=== PATIENT | female | born 1985 | race American Indian/Alaskan Native ===

== ENCOUNTER 2017-04-17 02:00 | Emergency (ER) | payer OTHER ==
[2017-04-17 02:12] VITALS: BP 115/55
[2017-04-17 02:48] LABS: Basophils % (Auto) 0.4 % (0.0-1.8); Eosinophils % (Auto) 5.1 % (0.0-4.3); Hemoglobin 13.5 gm/dl (10.1-14.3); Mean Corpuscular HGB Conc 34 % (30-34); Mean Corpuscular Hemoglobin 29 pg (28-32); Mean Corpuscular Volume 87 fl (79-97); Platelet Count 254 K/mm3 (140-440); Red Cell Distribution Width 13.4 % (13.2-15.2)
[2017-04-17 03:02] LABS: Alanine Aminotransferase 13 units/L (7-56); Albumin 4.3 g/dL (3.9-5); Albumin/Globulin Ratio 1.2 %; Alkaline Phosphatase 46 units/L (35-129); Anion Gap 16 mmol/L; BUN/Creatinine Ratio 15; Bilirubin,Total < 0.20 mg/dL (0.1-1.2); Blood Urea Nitrogen 9 mg/dL (7-17); Calcium 9.2 mg/dL (8.4-10.2); Carbon Dioxide 24 mmol/L (22-30); Chloride 100.5 mmol/L (98-107); Glucose 97 mg/dL (65-100); Lipase 41 units/L (13-60); Potassium 3.8 mmol/L (3.6-5.0); Sodium 137 mmol/L (137-145); Total Protein 7.8 g/dL (6.3-8.2)
[2017-04-17 04:22] LABS: Bilirubin,Urine NEG (Negative); Blood,Urine SM (Negative); Ketones,Urine NEG (Negative); Leukocyte Esterase,Urine NEG (Negative); Mucus,Urine FEW /HPF; Nitrite,Urine NEG (Negative); Urobilinogen,Urine < 2.0 mg/dL (<2.0)
== END 2017-04-17 02:49 | disposition left against medical advice (07) ==
LOC: ED 02:00
DX: R10.9 Unspecified abdominal pain (principal); Z53.21 Procedure and treatment not carried out due to patient leaving prior to being seen by health care provider
CPT/HCPCS: 36415; 80053; 81001; 83690; 85025

== ENCOUNTER 2017-06-26 11:56 | Emergency (ER) | payer SELFPAY ==
[2017-06-26 12:11] VITALS: BP 111/79
[2017-06-26] MEDS ORDERED: NACL 0.9% 1000 ML 1,000 ML IV ONE (12:35)
[2017-06-26] MEDS ORDERED: ZOFRAN IV ONE (12:35)
--- NOTE | 2017-06-26 12:36 | Emergency Department Report ---
Blank Doc - Documentation Documentation: vomiting, 9weeks ga, no pain, no bleeding. symptoms x 1 week.
[2017-06-26 13:10] LABS: Basophils % (Auto) 0.4 % (0.0-1.8); Eosinophils # (Auto) 0.1 K/mm3 (0.0-0.4); Eosinophils % (Auto) 1.9 % (0.0-4.3); Hematocrit 37.4 % (30.3-42.9); Hemoglobin 12.5 gm/dl (10.1-14.3); Lymphocytes # (Auto) 2.3 K/mm3 (1.2-5.4); Lymphocytes % (Auto) 33.1 % (13.4-35.0); Mean Corpuscular HGB Conc 33 % (30-34); Mean Corpuscular Hemoglobin 28 pg (28-32); Mean Corpuscular Volume 85 fl (79-97); Monocytes # (Auto) 0.4 K/mm3 (0.0-0.8); Platelet Count 305 K/mm3 (140-440); Red Blood Count 4.41 M/mm3 (3.65-5.03); Red Cell Distribution Width 12.7 % (13.2-15.2)
[2017-06-26 13:38] LABS: Alanine Aminotransferase 34 units/L (7-56); Albumin 3.6 g/dL (3.9-5); BUN/Creatinine Ratio 15; Blood Urea Nitrogen 6 mg/dL (7-17); Hemolysis Index 40; Lipase 30 units/L (13-60)
[2017-06-26 14:27] LABS: Bacteria,Urine 2+ /HPF (Negative); Bilirubin,Urine NEG (Negative); Blood,Urine MOD (Negative); Color,Urine Yellow (Yellow); Mucus,Urine 3+ /HPF
--- NOTE | 2017-06-26 14:54 | Emergency Department Report ---
HPI - General Chief Complaint: Nausea/Vomiting/Diarrhea Time Seen by Provider: 06/26/17 14:49 - HPI HPI: 32-year-old -Serbian female, presents to ED with nausea, vomiting, 9 weeks GA. She has not seen an DURABILITY TECHNICIAN doctor yet for this . Symptoms as been going on for the past week, worse today. She is not taking any antiemetic this . Last she took Zofran, Phenergan, with relief of her symptoms. ED Past Medical Hx - Past Medical History Previous Medical History?: No Hx Hypertension: No Hx CVA: No - Surgical History Additional Surgical History: Knee Sx - Social History Smoking Status: Never Smoker Substance Use Type: None - Medications Home Medications: Home Medications Medication Instructions Recorded Confirmed Last Taken Type Ondansetron [Zofran Odt] 4 mg PO BIDAC PRN #30 tab.rapdis 06/26/17 Unknown Rx ED Review of Systems ROS: Stated complaint: N/V Other details as noted in HPI Comment: All other systems reviewed and negative Gastrointestinal: nausea, vomiting Physical Exam - Physical Exam Vital Signs: Vital Signs 06/26/17 12:08 Temperature 98.6 F Pulse Rate 67 Respiratory 18 Rate Blood Pressure 111/79 O2 Sat by Pulse 100 Oximetry Physical Exam: - Physical Exam Physical Exam: - General Limitations: No Limitations General appearance: alert, in no apparent distress, obese - Head Head exam: Present: atraumatic, normocephalic - Eye Eye exam: Present: normal appearance - ENT ENT exam: Present: mucous membranes moist - Neck Neck exam: Present: normal inspection - Respiratory Respiratory exam: Present: normal lung sounds bilaterally. Absent: respiratory distress - Cardiovascular Cardiovascular Exam: Present: normal rhythm, tachycardia. Absent: systolic murmur, diastolic murmur, rubs, gallop - GI/Abdominal GI/Abdominal exam: Present: soft, normal bowel sounds - Extremities Exam Extremities exam: Present: normal inspection - Back Exam Back exam: Present: normal inspection - Neurological Exam Neurological exam: Present: alert, oriented X3 - Psychiatric Psychiatric exam: normal affect and mood - Skin Skin exam: Present: warm, dry, intact, normal color. Absent: rash ED Course Vital Signs 06/26/17 12:08 Temperature 98.6 F Pulse Rate 67 Respiratory 18 Rate Blood Pressure 111/79 O2 Sat by Pulse 100 Oximetry ED Medical Decision Making - Lab Data Result diagrams: 06/26/17 13:04 06/26/17 12:57 Critical care attestation.: If time is entered above; I have spent that time in minutes in the direct care of this critically ill patient, excluding procedure time. ED Disposition Clinical Impression: Vomiting of Disposition: DC-01 TO HOME OR SELFCARE Is pt being admited?: No Does the pt Need Aspirin: No Condition: Stable Instructions: Hyperemesis Gravidarum (ED) Prescriptions: Ondansetron [Zofran Odt] 4 mg PO BIDAC PRN #30 tab.rapdis PRN Reason: Vomiting Referrals: PRIMARY CARE, [Primary Care Provider] - 3-5 Days
== END 2017-06-26 15:07 | disposition home or self-care (01) ==
LOC: ED 11:56
DX: O21.9 Vomiting of pregnancy, unspecified (principal); Z3A.09 9 weeks gestation of pregnancy
CPT/HCPCS: 36415; 80053; 81001; 83690; 85025; 96361; 96374; 99283; J2405; J7030

== ENCOUNTER 2017-08-03 19:03 | Emergency (ER) | payer MEDICAID ==
[2017-08-03] MEDS ORDERED: ZOFRAN ODT ONE (19:19)
[2017-08-03] MEDS ORDERED: ZOFRAN ODT PO ONE (19:27)
[2017-08-03 19:54] LABS: Basophils % (Auto) 0.3 % (0.0-1.8); Eosinophils # (Auto) 0.2 K/mm3 (0.0-0.4); Eosinophils % (Auto) 2.8 % (0.0-4.3); Hematocrit 38.5 % (30.3-42.9); Hemoglobin 12.8 gm/dl (10.1-14.3); Lymphocytes # (Auto) 2.3 K/mm3 (1.2-5.4); Lymphocytes % (Auto) 26.3 % (13.4-35.0); Mean Corpuscular HGB Conc 33 % (30-34); Mean Corpuscular Hemoglobin 28 pg (28-32); Mean Corpuscular Volume 85 fl (79-97); Monocytes # (Auto) 0.6 K/mm3 (0.0-0.8); Platelet Count 308 K/mm3 (140-440); Red Blood Count 4.55 M/mm3 (3.65-5.03); Red Cell Distribution Width 13.2 % (13.2-15.2)
[2017-08-03 20:13] LABS: Bacteria,Urine 1+ /HPF (Negative); Bilirubin,Urine NEG (Negative); Blood,Urine MOD (Negative); Color,Urine Yellow (Yellow); Mucus,Urine 2+ /HPF
[2017-08-03 20:19] LABS: Alanine Aminotransferase 37 units/L (7-56); Albumin 3.9 g/dL (3.9-5); BUN/Creatinine Ratio 15; Blood Urea Nitrogen 6 mg/dL (7-17); Calcium 9.9 mg/dL (8.4-10.2); Hemolysis Index 12
[2017-08-03] MEDS ORDERED: K-DUR PO ONE (21:27)
[2017-08-03] MEDS ORDERED: D5NS 1,000 ML IV SCH ×2 (22:00)
--- NOTE | 2017-08-03 22:07 | Emergency Department Report ---
ED HPI - General Chief complaint: Abdominal Pain Stated complaint: NAUSEA/LOWER ABDOMINAL PAIN Time Seen by Provider: 08/03/17 21:27 Source: patient Mode of arrival: Ambulatory Limitations: No Limitations - History of Present Illness Initial comments: 32-year-old female is currently approximately 14 weeks presents to the hospital complaints of lower abdominal pain and persistent nausea and vomiting for 3 days. Patient was seen here on the for hyperemesis and received Zofran prescription with improvement which she currently does not have any antiemetic medication. She then presented to [facility] on the for the same symptoms. States her blood type is O- and she received RhoGAM during her [facility] visit but denies that she was having any vaginal bleeding or pain at that time. Patient now presents with intermittent suprapubic abdominal pain rated 6 out of 10 intensity. Pain is wore with palpation. No alleviating factors. Denies vaginal bleeding. dysuria, fever, diarrhea, hematemesis, or hematochezia. Patient complains of irritation to her left ear after sticking a Q-tip in its states it only hurts when she palpates the tragus and pain is gradually improving. No drainage or decreased hearing reported. Patient has her first visit scheduled with the group affiliated with [facility]. She plans to find a BIBLE TEACHER doctor affiliated with this hospital due to her family's bad past experiences with [facility]. She has had ultrasound at 7 weeks gestation at a clinic. - Related Data Previous Rx's Medication Instructions Recorded Last Taken Type Ondansetron [Zofran Odt] 4 mg PO BIDAC PRN #30 tab.rapdis 06/26/17 Unknown Rx Ondansetron [Zofran Odt] 4 mg PO Q8HR PRN #30 tab.rapdis 08/04/17 Unknown Rx Allergies Allergy/AdvReac Type Severity Reaction Status Date / Time No Known Allergies Allergy Verified 08/03/17 20:39 ED Review of Systems ROS: Stated complaint: NAUSEA/LOWER ABDOMINAL PAIN Other details as noted in HPI Comment: All other systems reviewed and negative ED Past Medical Hx - Past Medical History Previous Medical History?: No Hx Hypertension: No Hx CVA: No - Surgical History Past Surgical History?: Yes Additional Surgical History: R Knee Sx 2000 - Social History Smoking Status: Never Smoker Substance Use Type: None - Medications Home Medications: Home Medications Medication Instructions Recorded Confirmed Last Taken Type Ondansetron [Zofran Odt] 4 mg PO BIDAC PRN #30 tab.jeaninedis 06/26/17 08/03/17 Unknown Rx Ondansetron [Zofran Odt] 4 mg PO Q8HR PRN #30 tab.jeaninedis 08/04/17 Unknown Rx ED Physical Exam - General Limitations: No Limitations - Other Other exam information: General: No limitations, patient is alert in no acute distress Head exam: Atraumatic, normocephalic Eyes exam: Normal appearance ENT: Dry mucous membrane Neck exam: Normal inspection, full range of motion, no meningismus nontender Respiratory exam: Clear to auscultation bilateral, no wheezes, rales, crackles Cardiovascular: Normal rate and rhythm, normal heart sounds Abdomen: Soft, nondistended, mild Jennings the pubic tenderness, with normal bowel sounds, no rebound, or guarding Extremity: Full range of motion normal inspection no deformity Back: Normal Inspection, full range of motion, no tenderness Neurologic: Alert, oriented x3, cranial nerves intact, no motor or sensory deficit Psychiatric: normal affect, normal mood Skin: Warm, dry, intact ED Course Vital Signs 08/03/17 08/03/17 08/03/17 19:10 20:32 20:38 Temperature 99 F Pulse Rate 98 H 74 Respiratory 20 16 Rate Blood Pressure 112/77 Blood Pressure 104/64 [Right] O2 Sat by Pulse 99 100 96 Oximetry 08/03/17 08/03/17 08/03/17 20:45 21:00 21:15 Temperature Pulse Rate Respiratory Rate Blood Pressure 112/70 112/70 107/68 Blood Pressure [Right] O2 Sat by Pulse 100 100 100 Oximetry 08/03/17 08/03/17 08/03/17 21:17 21:30 21:45 Temperature Pulse Rate 74 Respiratory 16 Rate Blood Pressure 107/68 109/72 Blood Pressure 107/62 [Right] O2 Sat by Pulse 100 99 98 Oximetry 08/03/17 08/03/17 22:00 23:04 Temperature Pulse Rate Respiratory Rate Blood Pressure 109/72 109/72 Blood Pressure [Right] O2 Sat by Pulse 100 99 Oximetry - Reevaluation(s) Reevaluation #1: 08/04/17 00:45 pt feeling better, nausea has improved. Tolerated PO KCL ED Medical Decision Making - Lab Data Result diagrams: 08/03/17 19:22 08/03/17 19:22 Lab Results 08/03/17 08/03/17 08/03/17 Range/Units 19:22 19:22 19:22 WBC 8.9 (4.5-11.0) K/mm3 RBC 4.55 (3.65-5.03) M/mm3 Hgb 12.8 (10.1-14.3) gm/dl Hct 38.5 (30.3-42.9) % MCV 85 (79-97) fl MCH 28 (28-32) pg MCHC 33 (30-34) % RDW 13.2 (13.2-15.2) % Plt Count 308 (140-440) K/mm3 Lymph % (Auto) 26.3 (13.4-35.0) % Wilkin % (Auto) 7.0 (0.0-7.3) % Eos % (Auto) 2.8 (0.0-4.3) % Baso % (Auto) 0.3 (0.0-1.8) % Lymph # 2.3 (1.2-5.4) K/mm3 Wilkin # 0.6 (0.0-0.8) K/mm3 Eos # 0.2 (0.0-0.4) K/mm3 Baso # 0.0 (0.0-0.1) K/mm3 Seg Neutrophils % 63.6 (40.0-70.0) % Seg Neutrophils # 5.7 (1.8-7.7) K/mm3 Sodium 136 L (137-145) mmol/L Potassium 3.4 L (3.6-5.0) mmol/L Chloride 97.5 L (98-107) mmol/L Carbon Dioxide 21 L (22-30) mmol/L Anion Gap 21 mmol/L BUN 6 L (7-17) mg/dL Creatinine 0.4 L (0.7-1.2) mg/dL Estimated GFR > 60 ml/min BUN/Creatinine Ratio 15 % Glucose 83 (65-100) mg/dL Calcium 9.9 (8.4-10.2) mg/dL Total Bilirubin 0.20 (0.1-1.2) mg/dL AST 34 (5-40) units/L ALT 37 (7-56) units/L Alkaline Phosphatase 36 (35-129) units/L Total Protein 7.8 (6.3-8.2) g/dL Albumin 3.9 (3.9-5) g/dL Albumin/Globulin Ratio 1.0 % HCG, Quant 541412 H (0-4) mIU/mL Urine Color (Yellow) Urine Turbidity (Clear) Urine pH (5.0-7.0) Ur Specific [place] (1.003-1.030) Urine Protein (Negative) mg/dL Urine Glucose (UA) (Negative) mg/dL Urine Ketones (Negative) mg/dL Urine Blood (Negative) Urine Nitrite (Negative) Urine Bilirubin (Negative) Urine Urobilinogen (<2.0) mg/dL Ur Leukocyte Esterase (Negative) Urine WBC (Auto) (0.0-6.0) /HPF Urine RBC (Auto) (0.0-6.0) /HPF U Epithel Cells (Auto) (0-13.0) /HPF Urine Bacteria (Auto) (Negative) /HPF Urine Mucus /HPF 08/03/17 Range/Units Unknown WBC (4.5-11.0) K/mm3 RBC (3.65-5.03) M/mm3 Hgb (10.1-14.3) gm/dl Hct (30.3-42.9) % MCV (79-97) fl MCH (28-32) pg MCHC (30-34) % RDW (13.2-15.2) % Plt Count (140-440) K/mm3 Lymph % (Auto) (13.4-35.0) % Wilkin % (Auto) (0.0-7.3) % Eos % (Auto) (0.0-4.3) % Baso % (Auto) (0.0-1.8) % Lymph # (1.2-5.4) K/mm3 Wilkin # (0.0-0.8) K/mm3 Eos # (0.0-0.4) K/mm3 Baso # (0.0-0.1) K/mm3 Seg Neutrophils % (40.0-70.0) % Seg Neutrophils # (1.8-7.7) K/mm3 Sodium (137-145) mmol/L Potassium (3.6-5.0) mmol/L Chloride (98-107) mmol/L Carbon Dioxide (22-30) mmol/L Anion Gap mmol/L BUN (7-17) mg/dL Creatinine (0.7-1.2) mg/dL Estimated GFR ml/min BUN/Creatinine Ratio % Glucose (65-100) mg/dL Calcium (8.4-10.2) mg/dL Total Bilirubin (0.1-1.2) mg/dL AST (5-40) units/L ALT (7-56) units/L Alkaline Phosphatase (35-129) units/L Total Protein (6.3-8.2) g/dL Albumin (3.9-5) g/dL Albumin/Globulin Ratio % HCG, Quant (0-4) mIU/mL Urine Color Yellow (Yellow) Urine Turbidity Clear (Clear) Urine pH 5.0 (5.0-7.0) Ur Specific [place] 1.019 (1.003-1.030) Urine Protein 30 mg/dl (Negative) mg/dL Urine Glucose (UA) Neg (Negative) mg/dL Urine Ketones 80 (Negative) mg/dL Urine Blood Mod (Negative) Urine Nitrite Neg (Negative) Urine Bilirubin Neg (Negative) Urine Urobilinogen 2.0 (<2.0) mg/dL Ur Leukocyte Esterase Mod (Negative) Urine WBC (Auto) 4.0 (0.0-6.0) /HPF Urine RBC (Auto) 6.0 (0.0-6.0) /HPF U Epithel Cells (Auto) 35.0 H (0-13.0) /HPF Urine Bacteria (Auto) 1+ (Negative) /HPF Urine Mucus 2+ /HPF - Radiology Data Radiology results: report reviewed US IMPRESSION: Single intrauterine gestation at 14 weeks and 5 days. Estimated due date: 01/27/2018. Placenta previa is noted with the inferior placental margin crossing the internal OS. - Medical Decision Making Nausea and vomiting in Ultrasound reveals viable IUP No signs of UTI Patient received by mouth potassium for mild hypokalemia F/u will be provided with options of several BIBLE TEACHER doctors as an option to initiate her care Zofran will be prescribed symptomatic treatment of breath nausea vomiting in - Differential Diagnosis hyperemesis, dehydration, UTI, abnormal Critical Care Time: No Critical care attestation.: If time is entered above; I have spent that time in minutes in the direct care of this critically ill patient, excluding procedure time. ED Disposition Clinical Impression: Nausea and vomiting in , Hypokalemia, 14 weeks gestation of Disposition: TO HOME OR SELFCARE Is pt being admited?: No Does the pt Need Aspirin: No Condition: Stable Instructions: Hyperemesis Gravidarum (ED), Hypokalemia (ED) Additional Instructions: Follow-up with either of the BIBLE TEACHER group/physicians provided. Take the medication as prescribed. Return if symptoms worsen as indicated by your discharge instructions. Prescriptions: Ondansetron [Zofran Odt] 4 mg PO Q8HR PRN #30 tab.rapdis PRN Reason: Nausea And Vomiting Referrals: EPHRAIM ELISE MD [Staff Physician] - 3-5 Days DEONNA PENA MD [Staff Physician] - 3-5 Days REAGAN ANDERSON MD [Staff Physician] - 3-5 Days Time of Disposition: 01:08
--- NOTE | 2017-08-04 00:03 | Ultrasound Report ---
FINAL REPORT PROCEDURE: US OB TRANSVAGINAL TECHNIQUE: Real-time transabdominal sonography of the uterus, placenta, amniotic fluid, adnexa, and fetus was performed with image documentation. Measurements were obtained to determine age/size. M-mode Doppler was used to document heartbeat. Additional transvaginal images were obtained to measure the cervical length. CPT 48605 HISTORY: suprapubic abd pain, COMPARISON: No prior studies are available for comparison. FINDINGS: ADDITIONAL GESTATION: None. GENERAL: IUP: Single living intrauterine . Position: Cephalic Placental position: Anterior, with the inferior margin crossing the internal os consistent with previa. Amniotic fluid volume: Normal. MATERNAL: Uterus: Within normal limits. Cervical length: 4.2 cm. Internal Os: Closed. FETUS: Heart rate and rhythm: 144 beats per minute, regular anatomic survey: Normal. MEASUREMENTS: BPD: 2.53 centimeters corresponding to 14 weeks and 3 days HC: 9.55 centimeters corresponding to 14 weeks and 3 days AC: 8.03 centimeters corresponding to 14 weeks and 3 days FL: 1.77 centimeters corresponding to 15 weeks and 2 days Mean Gestational Age (composite criteria): 14 weeks and 5 days Ratio biometry: Normal. Estimated Weight: grams. Estimated Due Date: 01/27/2018 IMPRESSION: Single intrauterine gestation at 14 weeks and 5 days. Estimated due date: 01/27/2018. Placenta previa is noted with the inferior placental margin crossing the internal OS.
--- NOTE | 2017-08-04 00:08 | Ultrasound Report ---
FINAL REPORT PROCEDURE: US OB > = 14 WEEKS FETUS TECHNIQUE: Real-time transabdominal sonography of the uterus, placenta, amniotic fluid, adnexa, and fetus was performed with image documentation. Measurements were obtained to determine age/size. M-mode Doppler was used to document heartbeat. CPT 06550 HISTORY: suprapubic abd pain, COMPARISON: No prior studies are available for comparison. FINDINGS: ADDITIONAL GESTATION: None. GENERAL: IUP: Single living intrauterine . Position: Cephalic Placental position: Anterior, with the inferior margin crossing the internal os. Amniotic fluid volume: Normal. MATERNAL: Uterus: Within normal limits. Cervical length: 4.2 cm. Internal Os: Closed. FETUS: Heart rate and rhythm: 144 beats per minute anatomic survey: Normal MEASUREMENTS: BPD: 2.53 centimeters corresponding to 14 weeks and 3 days HC: 9.55 centimeters corresponding to 14 weeks and 3 days AC: 8.03 centimeters corresponding to 14 weeks and 3 days FL: 1.77 centimeters corresponding to 15 weeks and 2 days Mean Gestational Age (composite criteria): 14 weeks and 5 days Ratio biometry: Normal. Estimated Due Date : 01/27/2018 IMPRESSION: Single intrauterine gestation at 14 weeks and 5 days. Estimated due date: 01/27/2018. Placenta previa is noted with the inferior margin crossing the internal os.
[2017-08-04 01:24] VITALS: BP 106/73
== END 2017-08-04 01:24 | disposition home or self-care (01) ==
LOC: ED 19:03
DX: O26.891 Other specified pregnancy related conditions, first trimester (principal); R11.2 Nausea with vomiting, unspecified; E87.6 Hypokalemia; Z3A.14 14 weeks gestation of pregnancy
CPT/HCPCS: 36415; 76805; 76817; 80053; 81001; 84702; 85025; 96365; 99284; J7042; Q0162

== ENCOUNTER 2017-08-27 04:07 | Emergency (ER) | payer MEDICAID ==
[2017-08-27 04:19] VITALS: BP 113/75
[2017-08-27 04:44] LABS: Basophils % (Auto) 0.2 % (0.0-1.8); Eosinophils # (Auto) 0.4 K/mm3 (0.0-0.4); Eosinophils % (Auto) 3.4 % (0.0-4.3); Hematocrit 33.7 % (30.3-42.9); Hemoglobin 11.2 gm/dl (10.1-14.3); Lymphocytes # (Auto) 3.4 K/mm3 (1.2-5.4); Lymphocytes % (Auto) 29.3 % (13.4-35.0); Mean Corpuscular HGB Conc 33 % (30-34); Mean Corpuscular Hemoglobin 28 pg (28-32); Mean Corpuscular Volume 84 fl (79-97); Monocytes # (Auto) 0.6 K/mm3 (0.0-0.8); Monocytes % (Auto) 5.5 % (0.0-7.3); Platelet Count 319 K/mm3 (140-440); Red Cell Distribution Width 13.8 % (13.2-15.2)
[2017-08-27 04:47] LABS: Alanine Aminotransferase 182 units/L (7-56); Albumin 3.7 g/dL (3.9-5); BUN/Creatinine Ratio 10; Blood Urea Nitrogen 4 mg/dL (7-17); Calcium 9.6 mg/dL (8.4-10.2); Hemolysis Index 0
[2017-08-27 04:53] LABS: Bilirubin,Urine NEG (Negative); Blood,Urine NEG (Negative); Color,Urine Yellow (Yellow); Protein,Urine <15 mg/dL mg/dL (Negative); Urobilinogen,Urine < 2.0 mg/dL (<2.0); WBC,Urine < 1.0 /HPF (0.0-6.0)
== END 2017-08-27 04:51 | disposition left against medical advice (07) ==
LOC: ED 04:07
DX: R10.9 Unspecified abdominal pain (principal); Z53.21 Procedure and treatment not carried out due to patient leaving prior to being seen by health care provider
CPT/HCPCS: 36415; 80053; 81001; 84702; 85025

== ENCOUNTER 2017-11-22 11:10 | Outpatient (CLI) | payer MEDICAID | END 2017-11-22 14:06 | disposition home or self-care (01) | LOC: LAB 11:10 → TRG 13:45 → LAB 14:06 | PROVIDERS: ATTEND Obstetrics & Gynecology | DX: O36.0930 Maternal care for other rhesus isoimmunization, third trimester, not applicable or unspecified (principal) | CPT/HCPCS: 86850; 86900; 86901; 96372; J2790 ==

== ENCOUNTER 2017-12-27 19:15 | Outpatient (CLI) | payer MEDICAID ==
[2017-12-27 19:31] VITALS: BP 103/70
[2017-12-27] MEDS ORDERED: LACTATED RINGERS 1,000 ML IV ONE (19:31)
[2017-12-27 19:52] LABS: Bacteria,Urine 3+ /HPF (Negative); Bilirubin,Urine NEG (Negative); Blood,Urine LG (Negative); Color,Urine Yellow (Yellow); Mucus,Urine 3+ /HPF
== END 2017-12-27 20:40 | disposition home or self-care (01) ==
LOC: TRG 19:15
PROVIDERS: ATTEND Obstetrics & Gynecology
DX: O46.93 Antepartum hemorrhage, unspecified, third trimester (principal); Z3A.35 35 weeks gestation of pregnancy
CPT/HCPCS: 59025; 81001; 96360; J7120

== ENCOUNTER 2017-12-28 11:14 | Outpatient (CLI) | payer MEDICAID ==
[2017-12-28 11:34] VITALS: BP 107/67
[2017-12-28] MEDS ORDERED: LACTATED RINGERS 500 ML IV ONE (11:37)
== END 2017-12-28 12:20 | disposition home or self-care (01) ==
LOC: TRG 11:14
PROVIDERS: ATTEND Obstetrics & Gynecology
DX: O47.03 False labor before 37 completed weeks of gestation, third trimester (principal); Z3A.35 35 weeks gestation of pregnancy
CPT/HCPCS: 59025

== ENCOUNTER 2018-01-18 20:59 | Outpatient (CLI) | payer MEDICAID ==
[2018-01-18 21:34] VITALS: BP 115/75
== END 2018-01-19 | disposition home or self-care (01) ==
LOC: TRG 20:59
PROVIDERS: ATTEND Obstetrics & Gynecology
DX: O62.8 Other abnormalities of forces of labor (principal); Z3A.38 38 weeks gestation of pregnancy
CPT/HCPCS: 59025

== ENCOUNTER 2018-01-19 22:31 | Inpatient (IN) | payer MEDICAID ==
[2018-01-20] MEDS ORDERED: ZOFRAN IV PRN ×2 (01:59→11:33)
[2018-01-20] MEDS ORDERED: STADOL IV PRN (01:59)
[2018-01-20] MEDS ORDERED: MINERAL OIL PO PRN (01:59)
[2018-01-20] MEDS ORDERED: SUBLIMAZE IV PRN (01:59)
[2018-01-20] MEDS ORDERED: XYLOCAINE 2% INFILTRATI ONE (01:59)
[2018-01-20] MEDS ORDERED: NARCAN 0.4 MG/1 ML IV PRN (01:59)
[2018-01-20] MEDS ORDERED: BRETHINE SUB-Q PRN (01:59)
[2018-01-20] MEDS ORDERED: PHENERGAN PR PRN ×2 (01:59→11:33)
[2018-01-20] MEDS ORDERED: BRETHINE IVP PRN (01:59)
[2018-01-20] MEDS ORDERED: PITOCin/NS 30 UNIT/500ML 30 UNITS/500 ML BAG IV SCH ×2 (02:00)
[2018-01-20] MEDS ORDERED: LACTATED RINGERS 1,000 ML IV SCH (02:00)
--- NOTE | 2018-01-20 02:15 | History and Physical Report ---
History of Present Illness Date of examination: 01/20/18 Date of admission: 01/20/18 Chief complaint: contractions History of present illness: This is a 32 yo EDC 01/31/18 at 38 weeks came in c/o contractions. Srom in triage clear at 130am. 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 denies: smoking, alcohol abuse, prescription drug abuse - Obstetrical History Expected Date of Delivery: 01/31/18 Actual Gestation: 38 Week(s) 3 Day(s) : 3 Para: 0 Hx # Term Pregnancies: 0 Number of Pregnancies: 0 Number of Living Children: 0 Medications and Allergies Allergies Allergy/AdvReac Type Severity Reaction Status Date / Time No Known Allergies Allergy Verified 08/03/17 20:39 Home Medications Medication Instructions Recorded Confirmed Last Taken Type No Known Home Medications [No 12/27/17 12/27/17 Unknown History Reported Home Medications] Review of Systems All systems: negative Genitourinary: leakage of fluid - Physical Exam Breasts: Positive: normal Cardiovascular: Regular rate, Normal S1 Lungs: Positive: Clear to auscultation, Normal air movement Abdomen: Positive: normal appearance, soft, normal bowel sounds. Negative: distention, tenderness, guarding Genitourinary (Female): Positive: normal external genitalia, normal perenium Vagina: Positive: normal moisture Uterus: Positive: normal size Anus/Rectum: Positive: normal perianal skin, heme negative Extremities: Positive: normal Deep Tendon Reflex Grade: Normal +2 - Obstetrical FHR: category 1 Cervical Dilatation: 1 Cervical Effacement Percentage: 50 Uterine Contraction Pattern: Irregular Uterine Tone Measurement Phase: Contraction Uterine Contraction Intensity: Mild Results All other labs normal. Assessment and Plan A/P IUP 38 weeks, term SROM augment labor with pitocin patient does not epidural IVF, labs expect vaginal delivery
[2018-01-20 04:03] LABS: Hematocrit 30.8 % (30.3-42.9); Hemoglobin 10.2 gm/dl (10.1-14.3); Mean Corpuscular HGB Conc 33 % (30-34); Mean Corpuscular Volume 77 fl (79-97); Platelet Count 294 K/mm3 (140-440); Red Blood Count 4.02 M/mm3 (3.65-5.03); Red Cell Distribution Width 15.9 % (13.2-15.2)
[2018-01-20 04:04] LABS: Mean Corpuscular Hemoglobin 25 pg (28-32)
--- NOTE | 2018-01-20 08:26 | Ultrasound Report ---
ULTRASOUND OB LIMITED History: Cephalic position Technique: Transabdominal ultrasound with Doppler interrogation. Gestation: Single Position: Cephalic Heart Rate: 116 BPM
--- NOTE | 2018-01-20 09:05 | Event Note ---
Date: 01/20/18 patient comfortable after epidural NST cat 1 pelvic /-1 continue mgt
[2018-01-20] MEDS ORDERED: NARCAN 2 MG/2 ML IV PRN (09:30)
[2018-01-20] MEDS ORDERED: fentaNYL-BUPIV 2 MCG/ML-0.125% 200 MCG/100 ML BAG EPIDURAL SCH (09:30)
[2018-01-20] MEDS: PITOCin/NS 20 UNIT/1000ML DRIP 20 UNITS/1,000 ML BAG IV SCH ×2 (11:03→12:38)
--- NOTE | 2018-01-20 11:11 | Procedure Note ---
OB Delivery Note - Delivery Date of Delivery: 01/20/18 (female @ 1100) Surgeon: FLORENCIA BRADLEY Estimated blood loss: 200cc - Vaginal Delivery presentation: vertex Delivery position: OA Intrapartum events: decreased FHT variability Delivery induction: AROM Delivery augmentation: rupture of membranes, pitocin Delivery monitor: external FHT, external uterine Delivery placenta: spontaneous Delivery cord: 3 umbilical vessels Episiotomy: none Delivery laceration: none Anesthesia: epidural - Infant A at 1 minute: 8 at 5 minutes: 9 Infant Gender: Female (Pushed for viable female, placed skin to skin. Spont. placenta. Cord blood collected. Apgars 8/9. Pitocin infusing. No lacerations. Cord blood collected)
[2018-01-20] MEDS ORDERED: TUCKS PAD TP PRN (11:33)
[2018-01-20] MEDS ORDERED: MILK OF MAGNESIA PO PRN (11:33)
[2018-01-20] MEDS ORDERED: TYLENOL PO PRN (11:33)
[2018-01-20] MEDS ORDERED: PHENERGAN PO PRN (11:33)
[2018-01-20] MEDS ORDERED: LANSINOH TP PRN (11:33)
[2018-01-20] MEDS ORDERED: BENADRYL PO PRN (11:33)
[2018-01-20] MEDS ORDERED: DULCOLAX PR PRN (11:33)
[2018-01-20] MEDS ORDERED: SODIUM CHLORIDE FLUSH SYRINGE 10 ML IV NR (12:00)
[2018-01-20] MEDS ORDERED: PITOCin/NS 20 UNIT/1000ML DRIP 20,000 MILLIUNITS/1,000 ML BAG IV ONE (12:35)
[2018-01-20] MEDS: MOTRIN PO SCH ×2 (16:23→22:22)
[2018-01-20] MEDS: NORCO 5/325 PO PRN (18:24)
[2018-01-20 23:50] LABS: Hematocrit 24.8 % (30.3-42.9)
[2018-01-21] MEDS: NORCO 5/325 PO PRN ×3 (02:29→21:56)
[2018-01-21] MEDS: MOTRIN PO SCH ×2 (11:17→17:40)
--- NOTE | 2018-01-21 18:33 | Progress Note ---
Assessment and Plan A: PPD#1 s/p at term; Asymptomatic anemia P: Routine care. Discharge tomorrow with follow up in [address] Evans. Subjective - Subjective Date of service: 01/21/18 Principal diagnosis: s/p at term Interval history: Patient without complaints. No overnight events Patient reports: appetite normal, voiding normally, pain well controlled, ambulating normally : doing well Objective - Vital Signs Latest vital signs: Vital Signs Temp Pulse Resp BP Pulse Ox 01/21/18 17:40 20 01/21/18 16:29 98.3 F 64 18 106/57 01/21/18 11:19 20 01/21/18 11:17 20 01/21/18 08:16 98.4 F 77 18 118/72 01/21/18 02:29 18 01/21/18 01:00 98.2 F 70 20 114/68 99 01/20/18 22:22 20 01/20/18 21:40 98.6 F 71 20 119/70 98 Intake and Output 01/21/18 01/21/18 01/21/18 06:59 14:59 22:59 Intake Total 240 120 240 Output Total 400 Balance -160 120 240 Intake: Oral 240 120 240 Output: Urine 400 Void 400 Other: Total, Intake Amount 120 120 240 Total, Output Amount 400 # Voids Void 1 1 1 - Exam Breasts: Present: deferred Cardiovascular: Present: Regular rate Lungs: Present: Clear to auscultation Abdomen: Present: soft Uterus: Present: fundal height at umbilicus Extremities: Present: normal - Labs Labs: Abnormal lab results 01/20/18 Range/Units 23:33 Hgb 8.0 L (10.1-14.3) gm/dl Hct 24.8 L D (30.3-42.9) %
--- NOTE | 2018-01-21 20:04 | Discharge Summary ---
Providers - Providers Date of Admission: 01/20/18 04:58 Date of discharge: 01/22/18 Attending physician: TARI PENA MD Primary care physician: MELINA EVANS Hospitalization Reason for admission: rupture of membranes Delivery: Procedure details: Please see delivery note. Episiotomy: none Laceration: none Other procedures: none complications: none Discharge diagnosis: IUP at term delivered [place] baby: female Hospital course: Pt was admitted for rupture of membranes and went on to deliver a viable female via spontaneous vaginal delivery. Her course was uncomplicated and she met discharge criteria on PPD#2. She will follow up in [address] Evans. Condition at discharge: Stable Disposition: DC-01 TO HOME OR SELFCARE - Discharge Diagnoses (1) Term of female Status: Acute (2) Anemia Status: Acute Qualifiers: Anemia type: unspecified type Qualified Code(s): D64.9 - Anemia, unspecified Plan - Provider Discharge Summary Activity: routine, no sex for 6 weeks, no heavy lifting 4 weeks, no strenuous exercise Diet: routine Instructions: routine Additional instructions: [] Smoking cessation referral if applicable(refer to patient education folder for contact #) [] Refer to [facility]'s [facility] Booklet Call your doctor immediately for: * Fever > 100.5 * Heavy vaginal bleeding ( >1 pad per hour) * Severe persistent headache * Shortness of breath * Reddened, hot, painful area to leg or breast * Drainage or odor from incision. * Keep incision clean and dry at all times and follow doctor's instructions regarding bathing/showering - Follow up plan Follow up: MELINA EVANS MD [Primary Care Provider] - 02/17/18 (Please call to schedule appt )
[2018-01-22] MEDS: MOTRIN PO SCH ×3 (00:23→11:33)
[2018-01-22] MEDS ORDERED: BOOSTRIX IM ONE (06:00)
[2018-01-22 07:20] VITALS: BP 125/79
== END 2018-01-22 11:40 | disposition home or self-care (01) | DRG 774 ==
LOC: TRG 22:31 → LD 01-20 04:58 → OB 01-20 13:29
PROVIDERS: ADMIT Obstetrics & Gynecology; ATTEND Obstetrics & Gynecology
PROC: 10E0XZZ Delivery of Products of Conception, External Approach (ICD-10-PCS; principal; 2018-01-20)
PROC: 10907ZC Drainage of Amniotic Fluid, Therapeutic from Products of Conception, Via Natural or Artificial Opening (ICD-10-PCS; 2018-01-20)
PROC: 3E0R3BZ Introduction of Anesthetic Agent into Spinal Canal, Percutaneous Approach (ICD-10-PCS; 2018-01-20)
PROC: 00HU33Z Insertion of Infusion Device into Spinal Canal, Percutaneous Approach (ICD-10-PCS; 2018-01-20)
PROC: 3E0334Z Introduction of Serum, Toxoid and Vaccine into Peripheral Vein, Percutaneous Approach (ICD-10-PCS; 2018-01-21)
DX: O42.02 Full-term premature rupture of membranes, onset of labor within 24 hours of rupture (principal); O98.52 Other viral diseases complicating childbirth; O76 Abnormality in fetal heart rate and rhythm complicating labor and delivery; Z3A.38 38 weeks gestation of pregnancy; Z37.0 Single live birth; O99.02 Anemia complicating childbirth; D64.9 Anemia, unspecified; B00.9 Herpesviral infection, unspecified; Z79.899 Other long term (current) drug therapy
CPT/HCPCS: 36415; 76815; 85014; 85018; 85027; 85461; 86592; 86850; 86900; 86901; 90471; 90715; 99211; G0463; J0595; J2405; J2590; J2790; J3010; J7120

== ENCOUNTER 2019-10-05 15:20 | Emergency (ER) | payer SELFPAY ==
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
[2019-10-05] MEDS ORDERED: BALANCED SALT IRRIG (BSS) OPHTH SOLN 15 ML OU ONE (17:20)
[2019-10-05] MEDS ORDERED: TETRACAINE 0.5% OPHTH SOLN 4ML OU ONE (17:20)
[2019-10-05] MEDS ORDERED: FLUORESCEIN 1 MG STRIP OP ONE (17:20)
[2019-10-05] MEDS ORDERED: HYDROcodone/ACETAMINOPHEN 5-325 MG TAB PO ONE (17:59)
[2019-10-05] MEDS ORDERED: IBUPROFEN 600 MG TAB PO ONE (17:59)
--- NOTE | 2019-10-05 18:02 | Emergency Department Report ---
Eye Injury/Foreign Body - HPI Duration: Today Eye Location: Left Severity: Moderate Tetanus Status: Up to Date Eye Symptoms: Eye Pain: Yes, Blurred Vision: Yes, Eye Redness: Yes, Grinding/Hammering Metal: No, Used Eye Protection: No, Contact Lens Use: No, Recalls Injury: Yes, Photophobia: Yes Other History: 34-year-old -[place] female presents to the emergency room complaining of left eye pain status post daughter accidentally scratched her eye this morning. Patient reports that she has photophobia, eye tearing excessively, eye pain and mild swelling to the upper lid. ED Review of Systems ROS: Stated complaint: LEFT EYE PAIN Other details as noted in HPI Comment: All other systems reviewed and negative ED Past Medical Hx - Past Medical History Hx Hypertension: No Hx CVA: No Hx Congestive Heart Failure: No Hx Diabetes: No Hx Deep Vein Thrombosis: No Hx Renal Disease: No Hx Sickle Cell Disease: No Hx Seizures: No Hx Asthma: No Hx COPD: No Hx HIV: No - Surgical History Past Surgical History?: Yes Additional Surgical History: R Knee Sx 2000/ WRIST - Social History Smoking Status: Never Smoker Substance Use Type: Alcohol - Medications Home Medications: Home Medications Medication Instructions Recorded Confirmed Last Taken Type Ferrous Sulfate 325 mg PO BID #60 tablet. 01/21/18 Unknown Rx HYDROcodone/APAP 5-325 [[place] 1 each PO Q6HR PRN #20 tablet 01/21/18 Unknown Rx 5/325] Ibuprofen [Motrin] 800 mg PO Q8HR PRN #30 tablet 01/21/18 Unknown Rx Erythromycin [Erythromycin Ophth 1 strip OS QID 10 Days #1 tube 10/05/19 Unknown Rx Oint] Eye Injury Exam - Exam General: Vital signs noted. No distress. Alert and acting appropriately. - Visual Acuity Left Eye Exam: Left Injection, Left EOMI, Left Fluorescein Uptake, Left Photophobia, Neither Abnormal Pupil, Neither Eye Foreign Body, Neither Lid Foreign Body, Neither Mucous Discharge, Neither Purulent Discharge ED Course Vital Signs 10/05/19 15:26 Temperature 98.5 F Pulse Rate 63 Respiratory 20 Rate Blood Pressure 124/90 O2 Sat by Pulse 99 Oximetry ED Medical Decision Making - Medical Decision Making 34-year-old -[place] female presents to the emergency room complaining of left eye pain status post daughter accidentally scratched her eye this morning. Patient reports that she has photophobia, eye tearing excessively, eye pain and mild swelling to the upper lid. Patient will be treated for corneal abrasion patient will be given [place] 5/325 now and ibuprofen 600 mg p.o. now. Patient be discharged home on erythromycin ophthalmic ointment every 6 hours for 10 days. She was instructed to take ibuprofen 600 mg every 8 hours as needed for pain management. Instructed to follow-up with an experimental electronics developer. Patient verbalized understanding Critical care attestation.: If time is entered above; I have spent that time in minutes in the direct care of this critically ill patient, excluding procedure time. ED Disposition Clinical Impression: Abrasion of cornea, left Disposition: DC- TO HOME OR SELFCARE Is pt being admited?: No Does the pt Need Aspirin: No Condition: Stable Instructions: Corneal Abrasion (ED) Additional Instructions: Take ibuprofen as needed for pain management. Use ointment as prescribed. Is very important for you to follow-up with an experimental electronics developer in the next 24 to 48 hours Prescriptions: Erythromycin [Erythromycin Ophth Oint] 1 strip OS QID 10 Days #1 tube Referrals: PRIMARY CAREMD [Primary Care Provider] - 3-5 Days BALJEET MC MD [Staff Physician] - 3-5 Days [facility] [Provider Group] - 3-[address] [facility] [Provider Group] - 3-5 Days Forms: Work/School Release Form(ED)
[2019-10-05 18:25] VITALS: BP 122/68
== END 2019-10-05 18:23 | disposition home or self-care (01) ==
LOC: ED 15:20
DX: S05.02XA Injury of conjunctiva and corneal abrasion without foreign body, left eye, initial encounter (principal); Z79.899 Other long term (current) drug therapy; Z98.890 Other specified postprocedural states; X58.XXXA Exposure to other specified factors, initial encounter; Y93.89 Activity, other specified; Y92.89 Other specified places as the place of occurrence of the external cause; Y99.8 Other external cause status

== ENCOUNTER 2020-11-04 10:26 | Emergency (ER) | payer SELFPAY ==
--- NOTE | 2020-11-04 10:52 | Event Note ---
ED Screening Note Date of service: 11/04/20 Time: 10:51 ED Screening Note: Patient complains of nausea and vomiting x4 days Currently 5 weeks Also states left lower abdominal pain Denies vaginal bleeding This initial assessment/diagnostic orders/clinical plan/treatment(s) is/are subject to change based on patients health status, clinical progression and re- assessment by fellow clinical providers in the ED. Further treatment and workup at subsequent clinical providers discretion. Patient/guardian urged not to elope from the ED as their condition may be serious if not clinically assessed and managed. Initial orders include: Labs Ultrasound
[2020-11-04 11:29] LABS: Basophils % (Auto) 0.4 % (0.0-1.8); Eosinophils # (Auto) 0.1 K/mm3 (0.0-0.4); Eosinophils % (Auto) 1.5 % (0.0-4.3); Hematocrit 41.4 % (30.3-42.9); Hemoglobin 13.8 gm/dl (10.1-14.3); Lymphocytes # (Auto) 2.1 K/mm3 (1.2-5.4); Lymphocytes % (Auto) 34.5 % (13.4-35.0); Mean Corpuscular HGB Conc 33 % (30-34); Mean Corpuscular Volume 87 fl (79-97); Monocytes # (Auto) 0.3 K/mm3 (0.0-0.8); Monocytes % (Auto) 5.6 % (0.0-7.3); Platelet Count 302 K/mm3 (140-440); Red Blood Count 4.77 M/mm3 (3.65-5.03); Red Cell Distribution Width 13.1 % (13.2-15.2)
[2020-11-04 11:49] LABS: Alanine Aminotransferase 7 units/L (7-56); Albumin 4.6 g/dL (3.9-5); Blood Urea Nitrogen 7 mg/dL (7-17); Calcium 9.7 mg/dL (8.4-10.2); Hemolysis Index 5
[2020-11-04 11:54] LABS: BUN/Creatinine Ratio 14
[2020-11-04] MEDS ORDERED: METOCLOPRAMIDE 10 MG/2 ML INJ IV ONE (11:54)
[2020-11-04] MEDS ORDERED: SODIUM CHLORIDE 0.9% 1000 ML 1,000 ML IV ONE (11:54)
[2020-11-04 12:02] LABS: Bacteria,Urine 1+ /HPF (Negative); Bilirubin,Urine NEG (Negative); Blood,Urine MOD (Negative); Color,Urine Amber (Yellow); Mucus,Urine 2+ /HPF
[2020-11-04] MEDS ORDERED: cefTRIAXone/NS 1 GM/50 ML 1 GM/50 ML BAG IV ONE (12:14)
--- NOTE | 2020-11-04 12:43 | Ultrasound Report ---
OB Ultrasound HISTORY: pain in . TECHNIQUE: Grayscale and color imaging performed. COMPARISON: None FINDINGS: Transabdominal and endovaginal imaging was performed. Uterus measures 8.4 x 4.7 x 4.0 cm. There is an intrauterine gestational sac with mean diameter of 2. 3 cm. The size correlates with an EGA of 7 weeks and 2 days. A yolk sac is present. pole not vi sualized at this point. Both ovaries appear normal. There is trace simple pelvic free fluid. IMPRESSION: Intrauterine gestational sac with a yolk sac identified but no pole identified. Cor relate with serial beta hCG and repeat pelvic ultrasound if needed. Signer Name: Petey Patel MD Signed: 11/04/2020 12:39 PM Workstation Name: [id number]
--- NOTE | 2020-11-04 13:01 | Emergency Department Report ---
ED HPI - General Chief complaint: Nausea/Vomiting/Diarrhea Stated complaint: VOMITING Time Seen by Provider: 11/04/20 10:50 Source: patient Mode of arrival: Ambulatory Limitations: No Limitations - History of Present Illness Initial comments: This is a 35-year-old female nontoxic, well nourished in appearance, no acute signs of distress presents to the ED with c/o of pelvic pressure, dysuria, nausea vomiting times several days. Patient stated she is currently about 6 weeks . Patient denies any vaginal bleeding or flank pain. Patient that she does see her DIGITAL PHOTOGRAPHIC PRINTER. Patient denies any mid or upper abdominal pain. Patient denies any vaginal discharge or foul odor. Patient denies any chest pain, shortness of breathe, fever, chills, headache, stiff neck, numbness, tingling. Patient denies any urinary symptoms. Patient denies any allergies or PMH. -: days(s) Location: pelvis Radiation: none Severity: mild Severity scale (0 -10): 3 Quality: other (pressure) Consistency: intermittent Improves with: none Worsens with: other (urination) Associated symptoms: nausea/vomiting, dysuria. denies: vaginal bleeding, vaginal discharge, abdominal pain, headache, vision changes, malaise, dysparuenia, rash, seizure, shortness of breath, syncope, weakness Vaginal bleeding: none :: Yes Number of weeks : 6 Pre- care: followed by OB - Related Data Previous Rx's Medication Instructions Recorded Last Taken Type Ferrous Sulfate 325 mg PO BID #60 tablet. 01/21/18 Unknown Rx HYDROcodone/APAP 5-325 [[place] 1 each PO Q6HR PRN #20 tablet 01/21/18 Unknown Rx 5/325] Ibuprofen [Motrin] 800 mg PO Q8HR PRN #30 tablet 01/21/18 Unknown Rx Erythromycin [Erythromycin Ophth 1 strip OS QID 10 Days #1 tube 10/05/19 Unknown Rx Oint] Metoclopramide [Reglan] 10 mg PO Q12H PRN #12 tab 11/04/20 Unknown Rx Nitrofurantoin [place]/M-Cryst 100 mg PO Q12HR #14 capsule 11/04/20 Unknown Rx [Macrobid CAP] Allergies Allergy/AdvReac Type Severity Reaction Status Date / Time No Known Allergies Allergy Verified 10/05/19 15:22 ED Review of Systems ROS: Stated complaint: VOMITING Other details as noted in HPI Comment: All other systems reviewed and negative Constitutional: denies: chills, fever Eyes: denies: eye pain, eye discharge, vision change ENT: denies: ear pain, throat pain Respiratory: denies: cough, shortness of breath, wheezing Cardiovascular: denies: chest pain, palpitations Endocrine: no symptoms reported Gastrointestinal: denies: abdominal pain, nausea, diarrhea Genitourinary: dysuria. denies: urgency, frequency, hematuria, discharge, abnormal menses, dyspareunia Musculoskeletal: denies: back pain, joint swelling, arthralgia Skin: denies: rash, lesions Neurological: denies: headache, weakness, paresthesias Psychiatric: denies: anxiety, depression Hematological/Lymphatic: denies: easy bleeding, easy bruising ED Past Medical Hx - Past Medical History Hx Hypertension: No Hx CVA: No Hx Congestive Heart Failure: No Hx Diabetes: No Hx Deep Vein Thrombosis: No Hx Renal Disease: No Hx Sickle Cell Disease: No Hx Seizures: No Hx Asthma: No Hx COPD: No Hx HIV: No - Surgical History Additional Surgical History: R Knee Sx 2000/ WRIST - Social History Smoking Status: Never Smoker - Medications Home Medications: Home Medications Medication Instructions Recorded Confirmed Last Taken Type Ferrous Sulfate 325 mg PO BID #60 tablet. 01/21/18 Unknown Rx HYDROcodone/APAP 5-325 [[place] 1 each PO Q6HR PRN #20 tablet 01/21/18 Unknown Rx 5/325] Ibuprofen [Motrin] 800 mg PO Q8HR PRN #30 tablet 01/21/18 Unknown Rx Erythromycin [Erythromycin Ophth 1 strip OS QID 10 Days #1 tube 10/05/19 Unknown Rx Oint] Metoclopramide [Reglan] 10 mg PO Q12H PRN #12 tab 11/04/20 Unknown Rx Nitrofurantoin [place]/M-Cryst 100 mg PO Q12HR #14 capsule 11/04/20 Unknown Rx [Macrobid CAP] ED Physical Exam - General Limitations: No Limitations General appearance: alert, in no apparent distress - Head Head exam: Present: atraumatic, normocephalic - Eye Eye exam: Present: normal appearance - Neck Neck exam: Present: normal inspection, full ROM. Absent: lymphadenopathy - Respiratory Respiratory exam: Present: normal lung sounds bilaterally. Absent: respiratory distress, wheezes, rales, rhonchi, stridor, chest wall tenderness, accessory muscle use, decreased breath sounds, prolonged expiratory - Cardiovascular Cardiovascular Exam: Present: regular rate, normal rhythm, normal heart sounds. Absent: bradycardia, tachycardia, irregular rhythm, systolic murmur, diastolic murmur, rubs, gallop - GI/Abdominal GI/Abdominal exam: Present: soft, normal bowel sounds. Absent: distended, tenderness, guarding, rebound, rigid, diminished bowel sounds - Extremities Exam Extremities exam: Present: normal inspection, full ROM - Back Exam Back exam: Present: normal inspection, full ROM. Absent: tenderness, CVA tenderness (R), CVA tenderness (L), muscle spasm, paraspinal tenderness, vertebral tenderness, rash noted - Neurological Exam Neurological exam: Present: alert, oriented X3, normal gait - Psychiatric Psychiatric exam: Present: normal affect, normal mood - Skin Skin exam: Present: warm, dry, intact, normal color. Absent: rash ED Course Vital Signs 11/04/20 10:47 Temperature 98.4 F Pulse Rate 80 Respiratory 18 Rate Blood Pressure 120/73 O2 Sat by Pulse 100 Oximetry - Reevaluation(s) Reevaluation #1: 11/04/20 13:00 Patient is speaking in full sentences with no signs of distress noted. ED Medical Decision Making - Lab Data Result diagrams: 11/04/20 10:55 11/04/20 10:55 Lab Results 11/04/20 11/04/20 11/04/20 Range/Units 10:55 10:55 10:55 WBC 6.1 (4.5-11.0) K/mm3 RBC 4.77 (3.65-5.03) M/mm3 Hgb 13.8 (10.1-14.3) gm/dl Hct 41.4 (30.3-42.9) % MCV 87 (79-97) fl MCH 29 (28-32) pg MCHC 33 (30-34) % RDW 13.1 L (13.2-15.2) % Plt Count 302 (140-440) K/mm3 Lymph % (Auto) 34.5 (13.4-35.0) % Meagher % (Auto) 5.6 (0.0-7.3) % Eos % (Auto) 1.5 (0.0-4.3) % Baso % (Auto) 0.4 (0.0-1.8) % Lymph # (Auto) 2.1 (1.2-5.4) K/mm3 [place]agher # (Auto) 0.3 (0.0-0.8) K/mm3 Eos # (Auto) 0.1 (0.0-0.4) K/mm3 Baso # (Auto) 0.0 (0.0-0.1) K/mm3 Seg Neutrophils % 58.0 (40.0-70.0) % Seg Neutrophils # 3.5 (1.8-7.7) K/mm3 Sodium 138 (137-145) mmol/L Potassium 3.9 (3.6-5.0) mmol/L Chloride 101.6 (98-107) mmol/L Carbon Dioxide 25 (22-30) mmol/L Anion Gap 15 mmol/L BUN 7 (7-17) mg/dL Creatinine 0.5 L (0.6-1.2) mg/dL Estimated GFR > 60 ml/min BUN/Creatinine Ratio 14 % Glucose 84 (65-100) mg/dL Calcium 9.7 (8.4-10.2) mg/dL Total Bilirubin 0.60 (0.1-1.2) mg/dL AST 12 (5-40) units/L ALT 7 (7-56) units/L Alkaline Phosphatase 41 (35-129) units/L Albumin 4.6 (3.9-5) g/dL HCG, Quant 61924 H (0-4) mIU/mL Urine Color (Yellow) Urine Turbidity (Clear) Urine pH (5.0-7.0) Ur Specific [place] (1.003-1.030) Urine Protein (Negative) mg/dL Urine Glucose (UA) (Negative) mg/dL Urine Ketones (Negative) mg/dL Urine Blood (Negative) Urine Nitrite (Negative) Urine Bilirubin (Negative) Urine Urobilinogen (<2.0) mg/dL Ur Leukocyte Esterase (Negative) Urine WBC (Auto) (0.0-6.0) /HPF Urine RBC (Auto) (0.0-6.0) /HPF U Epithel Cells (Auto) (0-13.0) /HPF Urine Bacteria (Auto) (Negative) /HPF Urine Mucus /HPF 11/04/20 Range/Units Unknown WBC (4.5-11.0) K/mm3 RBC (3.65-5.03) M/mm3 Hgb (10.1-14.3) gm/dl Hct (30.3-42.9) % MCV (79-97) fl MCH (28-32) pg MCHC (30-34) % RDW (13.2-15.2) % Plt Count (140-440) K/mm3 Lymph % (Auto) (13.4-35.0) % Meagher % (Auto) (0.0-7.3) % Eos % (Auto) (0.0-4.3) % Baso % (Auto) (0.0-1.8) % Lymph # (Auto) (1.2-5.4) K/mm3 [place] # (Auto) (0.0-0.8) K/mm3 Eos # (Auto) (0.0-0.4) K/mm3 Baso # (Auto) (0.0-0.1) K/mm3 Seg Neutrophils % (40.0-70.0) % Seg Neutrophils # (1.8-7.7) K/mm3 Sodium (137-145) mmol/L Potassium (3.6-5.0) mmol/L Chloride (98-107) mmol/L Carbon Dioxide (22-30) mmol/L Anion Gap mmol/L BUN (7-17) mg/dL Creatinine (0.6-1.2) mg/dL Estimated GFR ml/min BUN/Creatinine Ratio % Glucose (65-100) mg/dL Calcium (8.4-10.2) mg/dL Total Bilirubin (0.1-1.2) mg/dL AST (5-40) units/L ALT (7-56) units/L Alkaline Phosphatase (35-129) units/L Albumin (3.9-5) g/dL HCG, Quant (0-4) mIU/mL Urine Color [place] (Yellow) Urine Turbidity Slightly-cloudy (Clear) Urine pH 5.0 (5.0-7.0) Ur Specific [place] 1.032 H (1.003-1.030) Urine Protein 100 mg/dl (Negative) mg/dL Urine Glucose (UA) Neg (Negative) mg/dL Urine Ketones 80 (Negative) mg/dL Urine Blood Mod (Negative) Urine Nitrite Neg (Negative) Urine Bilirubin Neg (Negative) Urine Urobilinogen 2.0 (<2.0) mg/dL Ur Leukocyte Esterase Lg (Negative) Urine WBC (Auto) 170.0 H (0.0-6.0) /HPF Urine RBC (Auto) 16.0 (0.0-6.0) /HPF U Epithel Cells (Auto) 5.0 (0-13.0) /HPF Urine Bacteria (Auto) 1+ (Negative) /HPF Urine Mucus 2+ /HPF - Radiology Data [facility] [address] [place] [address] Ultrasound Report Signed Patient: RHYS RILEY MR#: [id number] : 1985 Acct:[id number] Age/Sex: 35 / F ADM Date: 11/04/20 Loc: ED Attending Dr: Ordering Physician: JENNIFER ALONZO Date of Service: 11/04/20 Procedure(s): US OB <= 14 weeks fetus Accession Number(s): [id number] cc: JENNIFER ALONZO OB Ultrasound HISTORY: pain in . TECHNIQUE: Grayscale and color imaging performed. COMPARISON: None FINDINGS: Transabdominal and endovaginal imaging was performed. Uterus measures 8.4 x 4.7 x 4.0 cm. There is an intrauterine gestational sac with mean diameter of 2.3 cm. The size correlates with an EGA of 7 weeks and 2 days. A yolk sac is present. pole not visualized at this point. Both ovaries appear normal. There is trace simple pelvic free fluid. IMPRESSION: Intrauterine gestational sac with a yolk sac identified but no pole identified. Correlate with serial beta hCG and repeat pelvic ultrasound if needed. Signer Name: Petey Patel MD Signed: 11/04/2020 12:39 PM Workstation Name: [id number] Transcribed By: JW Dictated By: Petey Patel MD Electronically Authenticated By: Petey Patel MD Signed Date/Time: 11/04/20 1239 DD/ 1236 TD/TT: - Medical Decision Making This is a 35-year-old female presents with UTI and pelvic pain during . Patient is stable and was examined by me. Normal abdominal exam. US OB obtained and dictated by the radiologist. Ua obtained. Quantative serum test obtained. Patient notified of the US report with no questions noted by the patient. Patient was instructed f/u with DIGITAL PHOTOGRAPHIC PRINTER in 3-5 days for a repeat quantitative test and possibly ultrasound due to no heart tones noted. Labs within normal limits. At time of discharge, the patient does not seem toxic or ill in appearance. No acute signs of distress noted. Patient agrees to discharge treatment plan of care. No further questions noted by the patient. Critical care attestation.: If time is entered above; I have spent that time in minutes in the direct care of this critically ill patient, excluding procedure time. ED Disposition Clinical Impression: Pelvic pain during UTI in Qualifiers: Trimester: first trimester Qualified Code(s): O23.41 - Unspecified infection of urinary tract in , first trimester Disposition: TO HOME OR SELFCARE Is pt being admited?: No Does the pt Need Aspirin: No Condition: Stable Instructions: Urinary Tract Infection, Adult, [id number] Additional Instructions: Follow-up with a DIGITAL PHOTOGRAPHIC PRINTER doctor in 3-5 days for a repeat quantitative test and possible ultrasound or if symptoms worsen and continue return to emergency room as soon as possible. Prescriptions: Nitrofurantoin [place]/M-Cryst [Macrobid CAP] 100 mg PO Q12HR #14 capsule Metoclopramide [Reglan] 10 mg PO Q12H PRN #12 tab PRN Reason: Nausea Referrals: PRIMARY CAREMD [Primary Care Provider] - 3-5 Days [facility] [Provider Group] - 3-5 Days [facility] [Provider Group] - 3-5 Days Forms: Work/School Release Form(ED) Time of Disposition: 13:23
[2020-11-04 15:06] VITALS: BP 138/73
== END 2020-11-04 15:05 | disposition home or self-care (01) ==
LOC: ED 10:26
DX: O23.41 Unspecified infection of urinary tract in pregnancy, first trimester (principal); O26.891 Other specified pregnancy related conditions, first trimester; R10.2 Pelvic and perineal pain; R30.0 Dysuria; O21.9 Vomiting of pregnancy, unspecified; Z79.899 Other long term (current) drug therapy; Z3A.01 Less than 8 weeks gestation of pregnancy
CPT/HCPCS: 36415; 76801; 76817; 80053; 81001; 84702; 85025; 96365; 96375; 99284; J0696; J2765; J7030

== ENCOUNTER 2021-04-11 11:54 | Outpatient (CLI) | payer MEDICAID | END 2021-04-11 11:55 | disposition home or self-care (01) | LOC: LAB 11:54 | PROVIDERS: ATTEND Obstetrics & Gynecology | DX: O26.893 Other specified pregnancy related conditions, third trimester (principal); Z67.41 Type O blood, Rh negative; Z3A.28 28 weeks gestation of pregnancy | CPT/HCPCS: 86850; 86900; 86901; 96372; J2790 ==

== ENCOUNTER 2021-06-11 04:32 | Outpatient (CLI) | payer MEDICAID ==
[2021-06-11 04:55] VITALS: BP 119/81
== END 2021-06-11 06:22 | disposition home or self-care (01) ==
LOC: TRG 04:32 → APU 04:34 → TRG 06:22
PROVIDERS: ATTEND Obstetrics & Gynecology
DX: Z34.93 Encounter for supervision of normal pregnancy, unspecified, third trimester (principal); Z3A.37 37 weeks gestation of pregnancy
CPT/HCPCS: 59025